=== PATIENT | female | born 1965 | race African-American/Black ===

== ENCOUNTER 2017-07-19 09:26 | Emergency (ER) | payer OTHER ==
[2017-07-19 09:47] VITALS: BP 136/81; PULSE 77; TEMP 98.2; BMI 74.2
--- NOTE | 2017-07-19 10:18 | PDOC ---
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 States felt a strong pulling and now has pain radiating up tendon. Came straight from work for evaluation. Occurred: reports: this morning Severity: reports: mild, moderate Pain Location: reports: upper extremity Associated Symptoms (Fall): denies symptoms Past History - Travel Traveled outside of the country in the last 30 days: Yes Close contact w/someone who was outside of country & ill: Yes - Past Medical History Allergies/Adverse Reactions: Allergies Allergy/AdvReac Type Severity Reaction Status Date / Time morphine Allergy Verified 07/19/17 09:42 Home Medications: Ambulatory Orders Brimonidine Tartrate/Timolol [Combigan 0.2%-0.5% Eye Drops] 5 ml OP BID #0 drops 10/20/12 - Surgical History Cholecystectomy: Yes - Suicide/Smoking/Psychosocial Hx Smoking Status: No Smoking History: Never smoked Have you smoked in the past 12 months: No Number of Cigarettes Smoked Daily: 0 Hx Alcohol Use: No Drug/Substance Use Hx: No Substance Use Type: None Hx Substance Use Treatment: No Review of Systems - Review of Systems Able to Perform ROS?: Yes Is the patient limited American proficient: Yes Constitutional: Yes: See HPI. No: Symptoms Reported, Fever Musculoskeletal: Yes: Symptoms Reported, See HPI, Joint Pain, Joint Swelling ( right thumb, 2,3 digits) All Other Systems: Reviewed and Negative *Physical Exam - Vital Signs Last Vital Signs Temp Pulse Resp BP Pulse Ox 98.2 F 77 16 136/81 98 07/19/17 09:42 07/19/17 09:42 07/19/17 09:42 07/19/17 09:42 07/19/17 09:42 - Physical Exam General Appearance: Yes: Nourished, Appropriately Dressed, Apparent Distress, Mild Distress HEENT: positive: MANOLO, Normal ENT Inspection, TMs Normal, Pharynx Normal Neck: positive: Supple Gastrointestinal/Abdominal: positive: Soft Extremity: positive: Normal Capillary Refill, Normal Range of Motion, Other ( tenderness at PIP. but FROM to all digits with neurovasc intact . 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 Will F/U with [facility]. X-ray negative for fractures or dislocation *DC/Admit/Observation/Transfer Diagnosis at time of Disposition: Sprained finger and thumb Qualifiers: Encounter type: initial encounter Laterality: right Qualified Code(s): S63.619A - Unspecified sprain of unspecified finger, initial encounter - Discharge Dispostion Disposition: HOME Condition at time of disposition: Stable Decision to Admit order: No - Referrals Referrals: Adrian Villatoro MD [Primary Care Provider] - Jaun Quiñones MD [Staff Physician] - - Patient Instructions Printed Discharge Instructions: DI for Finger Sprain Additional Instructions: Rest, ice to area on and off for 15 minutes 4-6 times a day Avoid heavy lifting or exercise until pain and swelling is resolved or until further directed Keep area highly elevated to reduce swelling Use splints/Tiago wrap as directed Followup with orthopedist in one to 2 days if not improving, if significantly improved may wait one week for followup with orthopedist May use ibuprofen 2-200 mg tablets every 6 hours as needed for pain - Post Discharge Activity Forms/Work/School Notes: Back to Work
== END 2017-07-19 10:51 | disposition home or self-care (01) ==
LOC: JERFT 09:26 → JER 09:26 → JERFT 10:51
DX: S63.619A Unspecified sprain of unspecified finger, initial encounter (principal); X58.XXXA Exposure to other specified factors, initial encounter; Y93.89 Activity, other specified; Y92.9 Unspecified place or not applicable; S63.612A Unspecified sprain of right middle finger, initial encounter; S63.601A Unspecified sprain of right thumb, initial encounter; Y93.9 Activity, unspecified; Y92.159 Unspecified place in reform school as the place of occurrence of the external cause; Y99.0 Civilian activity done for income or pay
CPT/HCPCS: 73130-TC-RT-FY; 99281-25

== ENCOUNTER 2018-02-28 07:48 | Emergency (ER) | payer OTHER ==
[2018-02-28 07:56] VITALS: BP 151/70; PULSE 87; TEMP 97.9; BMI 74.6
--- NOTE | 2018-02-28 08:25 | PDOC ---
History of Present Illness - General History Source: Patient Exam Limitations: No Limitations - History of Present Illness Initial Comments: 02/28/18 09:39 Pt is a 52 y/o F who presents to the ED for R thumb pain. Pt is R hand dominant. Pt states that she was grabbed by a patient at work and the patient twisted it back. She states that her hand swelled up immediately after. Also complains of R shoulder pain. Did not take any medication for pain. Denies numbness/tingling to the extremity, weakness to the extremity, fever. <Chey Garcia - Last Filed: 02/28/18 10:48> <Leeroy Avery - Last Filed: 02/28/18 11:47> - General Chief Complaint: Injury Stated Complaint: ARM PAIN Time Seen by Provider: 02/28/18 07:53 Past History - Travel Traveled outside of the country in the last 30 days: No Close contact w/someone who was outside of country & ill: No - Past Medical History COPD: No - Surgical History Cholecystectomy: Yes - Suicide/Smoking/Psychosocial Hx Smoking Status: No Smoking History: Never smoked Have you smoked in the past 12 months: No Number of Cigarettes Smoked Daily: 0 Hx Alcohol Use: No Drug/Substance Use Hx: No Substance Use Type: None Hx Substance Use Treatment: No <Chey Garcia - Last Filed: 02/28/18 10:48> <Leeroy Avery - Last Filed: 02/28/18 11:47> - Past Medical History Allergies/Adverse Reactions: Allergies Allergy/AdvReac Type Severity Reaction Status Date / Time morphine Allergy Verified 02/28/18 07:53 Home Medications: Ambulatory Orders Brimonidine Tartrate/Timolol [Combigan 0.2%-0.5% Eye Drops] 5 ml OP BID #0 drops 10/20/12 Review of Systems - Review of Systems Able to Perform ROS?: Yes Comments:: 02/28/18 08:08 CONSTITUTIONAL: Absent: fever, chills, diaphoresis, generalized weakness, malaise, loss of appetite HEENT: Absent: rhinorrhea, nasal congestion, throat pain, throat swelling, difficulty swallowing, mouth swelling, ear pain, eye pain, visual Changes CARDIOVASCULAR: Absent: chest pain, loss of consciousness, palpitations, irregular heart rate, peripheral edema RESPIRATORY: Absent: cough, shortness of breath, dyspnea with exertion, orthopnea, wheezing, stridor, hemoptysis GASTROINTESTINAL: Absent: abdominal pain, abdominal distension, nausea, vomiting, diarrhea, constipation, melena, hematochezia GENITOURINARY: Absent: dysuria, frequency, urgency, hesitancy, hematuria, flank pain, genital pain MUSCULOSKELETAL: Present: R thumb pain, R shoulder pain Absent: arthralgia, joint swelling SKIN: Absent: rash, itching, pallor HEMATOLOGIC/IMMUNOLOGIC: Absent: easy bleeding, easy bruising, lymphadenopathy, frequent infections ENDOCRINE: Absent: unexplained weight gain, unexplained weight loss, heat intolerance, cold intolerance NEUROLOGIC: Absent: headache, focal weakness or paresthesias, dizziness, unsteady gait, seizure, mental status changes, bladder or bowel incontinence PSYCHIATRIC: Absent: anxiety, depression, suicidal or homicidal ideation, hallucinations. Is the patient limited Bengali proficient: No <Chey Garcia - Last Filed: 02/28/18 10:48> *Physical Exam - Vital Signs Last Vital Signs Temp Pulse Resp BP Pulse Ox 97.9 F 87 20 151/70 98 02/28/18 07:54 02/28/18 07:54 02/28/18 07:54 02/28/18 07:54 02/28/18 07:54 - Physical Exam Comments: 02/28/18 08:08 GENERAL: The patient is awake, alert, and fully oriented, in no acute distress. HEAD: Normal with no signs of trauma. EYES: Pupils equal, round and reactive to light, extraocular movements intact, sclera anicteric, conjunctiva clear. EXTREMITIES: TTP of the R thumb with swelling to the thenar eminence. No ttp of the scaphoid bone. No fall. ROM of R shoulder intact, negative drop arm test/ empty can test. Normal range of motion at all other joints, no edema. Strength of the arms 5/5 b/l. NEUROLOGICAL: Normal speech, normal gait. PSYCH: Normal mood, normal affect. SKIN: Warm, Dry, normal turgor, no rashes or lesions noted. <Chey Garcia - Last Filed: 02/28/18 10:48> - Vital Signs Last Vital Signs Temp Pulse Resp BP Pulse Ox 97.9 F 87 20 151/70 98 02/28/18 07:54 02/28/18 07:54 02/28/18 07:54 02/28/18 07:54 02/28/18 07:54 <Leeroy Avery - Last Filed: 02/28/18 11:47> Moderate Sedation - Procedure Monitoring Vital Signs: Procedure Monitoring Vital Signs Temperature 97.9 F 02/28/18 07:54 Pulse Rate 87 02/28/18 07:54 Respiratory Rate 20 02/28/18 07:54 Blood Pressure 151/70 02/28/18 07:54 O2 Sat by Pulse Oximetry (%) 98 02/28/18 07:54 <Chey Garcia - Last Filed: 02/28/18 10:48> - Procedure Monitoring Vital Signs: Procedure Monitoring Vital Signs Temperature 97.9 F 02/28/18 07:54 Pulse Rate 87 02/28/18 07:54 Respiratory Rate 20 02/28/18 07:54 Blood Pressure 151/70 02/28/18 07:54 O2 Sat by Pulse Oximetry (%) 98 02/28/18 07:54 <Leeroy Avery - Last Filed: 02/28/18 11:47> Procedures - Splinting Splint Location: Right: Finger (thumb) Pre-Proc Neuro Vasc Exam: normal Hand-Made Type: orthoglass Splint Type: Yes: Thumb Spica Post-Proc Neuro Vasc Exam: unchanged from pre-exam Tiago Bandage: 4" Sling: No Complications: No Good repositioning: Yes <Chey Garcia - Last Filed: 02/28/18 10:48> ED Treatment Course - Medications Given in the ED: ED Medications Discontinued Medications Generic Name Dose Route Start Last Admin Trade Name Freq PRN Reason Stop Dose Admin Ibuprofen 800 mg 02/28/18 08:26 02/28/18 08:52 Motrin - PO 02/28/18 08:27 Not Given ONCE ONE <Leeroy Avery - Last Filed: 02/28/18 11:47> Medical Decision Making - Medical Decision Making 02/28/18 09:57 Pt is a 52 y/o F who presents to the ED for R thumb pain after having it twisted by a resident at her job -On exam pt with TTP and swelling of the thenar eminance -No ttp of the scaphoid -X-ray is negative for fracture -Possible game keeper thumb, will place in thumb spica splint -DC home -I discussed the physical exam findings, ancillary test results and final diagnoses with the patient. I answered all of the patient's questions. The patient was satisfied with the care received and felt comfortable with the discharge plan and treatment plan. The Patient agrees to follow up with the primary care physician/specialist within 24-72 hours. Return precautions were given. <Chey Garcia - Last Filed: 02/28/18 10:48> - Medical Decision Making I reviewed the case of the mid-level practitioner and was available for consultation while in the emergency department <Leeroy Avery - Last Filed: 02/28/18 11:47> *DC/Admit/Observation/Transfer - Discharge Dispostion Decision to Admit order: No <Chey Garcia - Last Filed: 02/28/18 10:48> <Leeroy Avery - Last Filed: 02/28/18 11:47> Diagnosis at time of Disposition: Sprained finger and thumb Qualifiers: Encounter type: initial encounter Laterality: right Qualified Code(s): S63.619A - Unspecified sprain of unspecified finger, initial encounter - Discharge Dispostion Disposition: HOME Condition at time of disposition: Stable - Referrals Referrals: Adrian Villatoro MD [Primary Care Provider] - Jaun Quiñones MD [Staff Physician] - - Patient Instructions Printed Discharge Instructions: Ulnar Collateral Ligament Sprain of Thumb Additional Instructions: You have a sprain to right thumb. It is possibly called a gamekeeper's thumb. Please wear the splint until you can see ortho. Do not get it wet. Keep hand elevated to reduce swelling. You may take Motrin 800 mg every 8 hours for pain. Please follow up with orthopedics this week. A referral has been provided. Return to the emergency department for worsening pain, swelling or any new or worsening symptoms. - Post Discharge Activity Forms/Work/School Notes: Back to Work
[2018-02-28] MEDS ORDERED: IBUPROFEN 400 MG TABLET (FP) PO ONE ×2 (08:26→08:43)
== END 2018-02-28 10:20 | disposition home or self-care (01) ==
LOC: JER 07:48
PROC: 2W3GX1Z Immobilization of Right Thumb using Splint (ICD-10-PCS; principal; 2018-02-28)
DX: S63.621A Sprain of interphalangeal joint of right thumb, initial encounter (principal); W51.XXXA Accidental striking against or bumped into by another person, initial encounter; Y93.F9 Activity, other caregiving; Y92.118 Other place in children's home and orphanage as the place of occurrence of the external cause; Y99.0 Civilian activity done for income or pay
CPT/HCPCS: 73130-TC-RT-FY; 99281-25

== ENCOUNTER 2024-01-20 16:16 | Observation (INO) | payer OTHER ==
[2024-01-20 16:41] VITALS: BMI 75.9
[2024-01-20 17:39] LABS: BASO % 0.4 % (0-2.0); HEMATOCRIT 34.7 % (32.4-45.2); HEMOGLOBIN 11.3 GM/dL (10.7-15.3); LYMPH % 15.8 % (8-40); MCH 25.7 pg (25.7-33.7); MCHC 32.6 g/dl (32.0-36.0); MEAN CELL VOLUME 78.8 fl (80-96); MEAN PLT VOLUME 7.9 fl (7.5-11.1); MONO % 9.1 % (3.8-10.2); NEUT % 72.7 % (42.8-82.8); PLATELET COUNT 317 10^3/uL (134-434); RDW 15.6 % (11.6-15.6); WHITE BLOOD COUNT 5.6 K/mm3 (4.0-10.0)
[2024-01-20] MEDS: ACETAMINOPHEN 1000 MG/100 ML BAG IVPB ONE (17:43)
[2024-01-20] MEDS ORDERED: ACETAMINOPHEN 325 MG TABLET (FP) ONE (17:46)
[2024-01-20 17:51] LABS: INR 1.17 (0.83-1.09); PROTHROMBIN TIME (PATIENT) 13.4 SEC (9.7-13.0)
[2024-01-20] MEDS: ACETAMINOPHEN 325 MG TABLET (FP) PO ONE (17:52)
[2024-01-20 17:53] LABS: ACTIVATED PTT 33.7 SECONDS (25.2-36.5)
[2024-01-20 18:29] LABS: POTASSIUM 3.8 mmol/L (3.5-5.1)
[2024-01-20 18:30] LABS: ALBUMIN 3.2 g/dl (3.4-5.0); BLOOD UREA NITROGEN 9.7 mg/dL (7-18); CALCIUM 9.3 mg/dL (8.5-10.1)
[2024-01-20 18:34] LABS: CREATININE 0.6 mg/dL (0.55-1.3)
[2024-01-20 18:35] LABS: BILIRUBIN,TOTAL 0.7 mg/dL (0.2-1); TOT PROT 6.3 g/dl (6.4-8.2)
[2024-01-20 18:38] LABS: N-TERMINAL BNP 184.9 pg/ml (5-125)
[2024-01-20] MEDS ORDERED: KETOROLAC TROMETHAMINE 30 MG/1 ML VIAL ONE ×2 (18:39→21:54)
[2024-01-20] MEDS: KETOROLAC TROMETHAMINE 30 MG/1 ML VIAL IM ONE ×2 (18:43→21:57)
[2024-01-20] MEDS ORDERED: FAMOTIDINE 20 MG TABLET ONE (20:28)
[2024-01-20] MEDS ORDERED: ONDANSETRON *ODT* 4 MG TABLET ONE (20:28)
[2024-01-20] MEDS ORDERED: MAG HYDROX/AL HYDROX/SIMETH 30 ML UNIT-DOSE CUP ONE (20:28)
[2024-01-20] MEDS: ONDANSETRON 4 MG TABLET PO ONE (20:42)
[2024-01-20] MEDS: ONDANSETRON 4 MG/2 ML VIAL IVPB ONE (20:42)
[2024-01-20] MEDS: MAG HYDROX/AL HYDROX/SIMETH 30 ML UNIT-DOSE CUP PO ONE (20:42)
[2024-01-20] MEDS: FAMOTIDINE 20 MG TABLET PO ONE (20:42)
[2024-01-21] MEDS: ASPIRIN 81 MG CHEWABLE TABLETS PO ONE (00:20)
[2024-01-21] MEDS: ACETAMINOPHEN 500 MG TABLET (FP) PO PRN (00:20)
[2024-01-21] MEDS ORDERED: ACETAMINOPHEN 325 MG TABLET (FP) ONE (00:23)
[2024-01-21] MEDS ORDERED: ASPIRIN 81 MG CHEWABLE TABLETS ONE (00:23)
[2024-01-21 07:23] LABS: BASO % 0.3 % (0-2.0); EOS % 3.7 % (0-4.5); HEMATOCRIT 34.1 % (32.4-45.2); HEMOGLOBIN 11.1 GM/dL (10.7-15.3); LYMPH % 17.3 % (8-40); MCH 25.9 pg (25.7-33.7); MCHC 32.5 g/dl (32.0-36.0); MEAN CELL VOLUME 79.5 fl (80-96); MEAN PLT VOLUME 8.1 fl (7.5-11.1); MONO % 11.1 % (3.8-10.2); NEUT % 67.6 % (42.8-82.8); PLATELET COUNT 308 10^3/uL (134-434); RBC 4.28 M/mm3 (3.60-5.2); RDW 15.9 % (11.6-15.6); WHITE BLOOD COUNT 5.2 K/mm3 (4.0-10.0)
[2024-01-21 07:48] LABS: BLOOD UREA NITROGEN 14.2 mg/dL (7-18); CALCIUM 9.5 mg/dL (8.5-10.1)
[2024-01-21 07:51] LABS: CREATININE 0.9 mg/dL (0.55-1.3)
[2024-01-21] MEDS ORDERED: ENOXAPARIN NA (PORCINE) 40 MG/0.4 ML DISP.SYRIN SQ ONE (10:28)
[2024-01-21] MEDS ORDERED: ACETAMINOPHEN 500 MG TABLET (FP) ONE (10:32)
[2024-01-21] MEDS: ENOXAPARIN NA (PORCINE) 40 MG/0.4 ML DISP.SYRIN SQ SCH (10:53)
[2024-01-21] MEDS ORDERED: ACETAMINOPHEN 1000 MG/100 ML BAG IVPB PRN (12:19)
[2024-01-21] MEDS: METHOCARBAMOL 500 MG TABLET PO SCH (14:14)
[2024-01-21] MEDS: LIDOCAINE 4% PATCH TP SCH (15:16)
[2024-01-21] MEDS: ATORVASTATIN CA 10 MG TABLET (FP) PO SCH (22:25)
[2024-01-21] MEDS: LIDOCAINE PATCH REMOVAL MC SCH (22:25)
[2024-01-22] MEDS: ASPIRIN 81 MG CHEWABLE TABLETS PO SCH (09:27)
[2024-01-22] MEDS: IBUPROFEN 400 MG TABLET (FP) PO PRN (12:51)
[2024-01-22] MEDS: KETOROLAC TROMETHAMINE 30 MG/1 ML VIAL IVPUSH PRN (19:55)
[2024-01-22] MEDS: SERTRALINE HCL 25 MG TABLET (FP) PO ONE (20:15)
[2024-01-22] MEDS: GABAPENTIN 100 MG CAPSULE PO SCH (22:14)
[2024-01-23] MEDS ORDERED: IBUPROFEN 400 MG TABLET (FP) PO PRN (07:12)
[2024-01-23] MEDS ORDERED: KETOROLAC TROMETHAMINE 30 MG/1 ML VIAL IVPUSH PRN (07:12)
[2024-01-23] MEDS: ENOXAPARIN NA (PORCINE) 40 MG/0.4 ML DISP.SYRIN SQ SCH (10:54)
[2024-01-23] MEDS: SERTRALINE HCL 25 MG TABLET (FP) PO SCH (10:55)
[2024-01-23] MEDS: ASPIRIN 81 MG CHEWABLE TABLETS PO SCH (11:01)
[2024-01-23] MEDS: LIDOCAINE 4% PATCH TP SCH (11:01)
[2024-01-23] MEDS: ACETAMINOPHEN 500 MG TABLET (FP) PO PRN (12:30)
[2024-01-23] MEDS: METHOCARBAMOL 500 MG TABLET PO SCH (14:05)
[2024-01-23] MEDS: ATORVASTATIN CA 10 MG TABLET (FP) PO SCH (21:45)
[2024-01-23 22:37] VITALS: BP 156/91; PULSE 98; RESP 18; TEMP 97.7
[2024-01-23] MEDS: LIDOCAINE PATCH REMOVAL MC SCH (22:46)
== END 2024-01-23 22:05 ==
LOC: JER 16:16 → JERBED 23:36 → J4W 01-21 17:21 → J7W 01-22 15:07
PROVIDERS: ADMIT Internal Medicine; ATTEND Internal Medicine
PROC: 3E023GC Introduction of Other Therapeutic Substance into Muscle, Percutaneous Approach (ICD-10-PCS; principal; 2024-01-20)
PROC: 3E0233Z Introduction of Anti-inflammatory into Muscle, Percutaneous Approach (ICD-10-PCS; 2024-01-20)
DX: R07.9 Chest pain, unspecified (principal); E78.5 Hyperlipidemia, unspecified; E66.01 Morbid (severe) obesity due to excess calories; M17.0 Bilateral primary osteoarthritis of knee; R26.2 Difficulty in walking, not elsewhere classified; G47.33 Obstructive sleep apnea (adult) (pediatric); Z99.81 Dependence on supplemental oxygen; Z91.199 Patient's noncompliance with other medical treatment and regimen due to unspecified reason; Z98.84 Bariatric surgery status; H40.9 Unspecified glaucoma
CPT/HCPCS: 0241U-QW; 36415; 71045-TC-FY; 80048; 80053; 80061; 83735; 83880; 84439; 84443; 84484; 85025; 85610; 85730; 93005; 93010; 93306-TC; 96372; 96374; 97116-GP; 97162-GP; 99285-25; G0378